=== PATIENT | male | born 1950 | race Caucasian/White ===

== ENCOUNTER → 2023-02-09 09:57 | Outpatient (BNVA) | payer MEDICARE, SELFPAY | PROVIDERS: PCP Internal Medicine; Visit Provider Internal Medicine | DX: R06.02 Shortness of breath (principal); R94.31 Abnormal electrocardiogram [ECG] [EKG]; I10 Essential (primary) hypertension | CPT/HCPCS: 93005; 99202 ==

== ENCOUNTER → 2023-03-11 09:39 | Outpatient (REF) | payer MEDICARE, SELFPAY ==
--- NOTE | ~2023-03-11 | NM_ITS ---
Exercise Myocardial perfusion study Indication: Precordial chest pain Technique: The patient was brought in for an exercise perfusion study on 03/11/2023. Patient performed exercise as per King protocol and was injected 25 mCi of sestamibi was given intravenously one target HR was achieved. Images were obtained using the SPECT gamma camera interlaced with the gating device. Images were obtained in supine position. Resting perfusion study was performed on 03/12/2023. Patient was administered 25 mCi of sestamibi intravenously at rest. Images were then obtained in supine position. Images obtained with and without CT attenuation. Total DLP 90 mGy-cm. Images were processed with the software and compared side to side in short axis, horizontal long axis and vertical long axis views. Findings: The stress perfusion study showed non attenuated images show mildly reduced uptake in the basal inferior wall of the LV myocardium. Remainder of the LV myocardium is normally perfused. Attenuation corrected images show normal uptake of radiotracer in all segments of LV myocardium there is suggestion of left ventricle hypertrophy. The gated study shows reduced LV systolic function with calculated LVEF of 40%, however visually appears to be higher. LV cavity is mildly dilated in size. The gated study shows normal systolic wall thickening and contraction of all segments. There is no transient ischemic dilation. Resting study shows no change in perfusion pattern compared to stress perfusion study. Gating at rest reveals normal systolic wall motion with ejection fraction at 44%. The findings are consistent with no reversible defect suggestive of ischemia. NM/NM cardiolite stress test Impression: 1. Normal myocardial perfusion 2. Gated LVEF is 40% visually appears to be consider echocardiogram 3. Transient ischemic dilatation not present Stress EKG is nondiagnostic for ischemia
--- NOTE | 2023-03-11 09:43 | CA_ITS ---
Acquisition Time: 2023-03-11 10:53:57 Total Exercise Time: 00:04:09 Test Indications: R07.2 - Precordial pain Medications: Protocol: ROSIO Max HR: 133 BPM 89% of Pred: 149 BPM Max BP: 224/088 mmHG Max Work Load: 5.9 METS Exercise stress test exercise 4 min 9 sec of Rosio protocol achieving 89% MPHR, with severe SOB, vague chest discomfort, without arrhythmias, with hypertensive response to exercise, with non-diagnostic EKG due to baseline abnormality. Symptoms resolved in recovery. Max BP 224/88. Nuclear images pending. Test revewied with Dr. Suh. Referred By: Rush Yoo Overread By: JAN MIRZA
== END ==
LOC: HO.CARD 09:39
PROVIDERS: Visit Provider Internal Medicine
DX: R07.2 Precordial pain (principal); I25.10 Atherosclerotic heart disease of native coronary artery without angina pectoris; R94.31 Abnormal electrocardiogram [ECG] [EKG]
CPT/HCPCS: 78452; 93017; A9500

== ENCOUNTER → 2024-04-28 12:22 | Outpatient (REF) | payer MEDICARE, MEDICAID, SELFPAY ==
--- NOTE | 2024-04-28 12:26 | CA_ITS ---
Transthoracic Echocardiogram Patient (Last, First, Middle): Boo Singh, Gender: Male Date of : 1950 Age: 74 Procedure Date: 04/28/2024 Procedure Type: Transthoracic Echocardiogram Location: OP Height: 157.48 cm Weight: 79.38 kg BSA: 1.81 m2 Heart Rate: 70 bpm BP: 148 / 72 mmHg [employer] Crewmember: SB Referring MD: Ramila Fletcher QUALITY SYSTEMS MANAGER Symptoms: R94.39 ABN CV STUDY, HX ABN STRESS, HTN HID ROSA M GLUCOSE Study Quality: Adequate ECG Rhythm: Sinus Conclusions: - Normal left ventricular cavity size. The left ventricular systolic function is mildly decreased. The visually estimated ejection fraction is between 40-45%. - E/E prime ratio is between 8 and 15 consistent with indeterminate filling pressures. - There is severe septal asymmetric hypertrophy. - Normal right ventricular cavity size and systolic function. - The left atrium is mildly dilated. The right atrium is mildly dilated. - Mild pulmonary hypertension is present. - There is mild dilatation of the ascending aorta measuring 3.50 cm. Findings Left Ventricle Normal left ventricular cavity size. The left ventricular systolic function is mildly decreased. The visually estimated ejection fraction is between 40 45%. Abnormal diastolic function is noted. Spectral Doppler is indicative of an impaired relaxation filling pattern. E/E prime ratio is between 8 and 15 consistent with indeterminate filling pressures. There is severe septal asymmetric hypertrophy. Right Ventricle Normal right ventricular cavity size and systolic function. Atria The left atrium is mildly dilated. The right atrium is mildly dilated. Aortic Valve There is a normal trileaflet aortic valve. There is mild calcification of the aortic valve. There is no aortic valve stenosis. There is no aortic valve regurgitation. Mitral Valve The mitral valve appears normal. There is mild mitral valve regurgitation. There is no mitral valve stenosis. Pulmonic Valve The pulmonic valve is normal. There is trace pulmonic valve regurgitation. Tricuspid Valve Normal tricuspid valve structure. There is trace tricuspid valve regurgitation. The right ventricular systolic pressure is 43 mmHg. Normal right atrial pressure. Mild pulmonary hypertension is present. Great Vessels There is mild dilatation of the ascending aorta measuring 3.50 cm. The visualized portions of the pulmonary artery and branches are normal. Venous The inferior vena cava is normal in size and collapses greater than 50% with inspiration. Pericardium/Pleural There is no evidence of pericardial effusion. Prior Study Comparison No prior study available for comparison. Measurements 2D Linear Measurements IVSd: 1.50 0.6-0.9/0.6-1.0 cm LVIDd: 5.50 3.9-5.3/4.2-5.9 cm LVIDd Index: 3.04 2.4-3.2/2.2-3.1 cm/m2 LVIDs: 3.52 2.0-3.6 cm LVPWd: 0.60 0.7-1.1 cm LV Mass: 283.51 67-162/88-224 g LV Mass Index: 156.63 43-95/49-115 g/m2 LVOT Diam: 2.10 3.0+(-)1.3 cm 2D Systolic Function EF 4C: 57.60 >55% EF 2C: 44.90 >55% Mitral Valve MV Pk E: 0.70 MV PK A: 0.52 MV Decel Time: 155.00 E/A: 1.30 E'Lateral: 7.72 E'Medial: 5.66 E/E' Med: 12.30 E/E' Lat: 9.00 PHT: 45.00 MVA PHT: 4.89 Decel Will: 4.51 Aortic Valve AoV Pk Frank: 0.96 AoV Pk Grad: 4.00 BINU: 2.28 LVOT LVOT Pk Frank: 0.63 LVOT Mn Frank: 0.43 LVOT VTI: 0.12 LVOT Pk Grad: 2.00 LVOT Mn Grad: 1.00 LVOT Diam: 2.10 LVOT Area: 3.46 Diastolic Function MV Pk E: 0.70 MV Pk A: 0.52 E/A: 1.30 E'Medial: 5.66 E/E' Med: 12.30 E' Laterial: 7.72 E/E' Lat: 9.00 Right Ventricle TAPSE (mm): 15.70 TVS' Frank: 9.57 Tricuspid Valve TR Pk Frank: 3.15 TR Pk Grad: 40.00 RA Press: 3.00 RVSP: 43.00 Great Vessels Aorta Sinus of Valsalva: 3.30 2.0-3.5 cm Ao Asc: 3.50 2.1-3.4 cm Pulmonary Valve PV Pk Frank: 0.84 Peak PV Grad: 3.00 Updated in Other Vendor System with Status of Final Cameron Hidalgo MD electronically signed on 04/29/2024 11:51:53 AM with status of Final
== END ==
LOC: HO.CARD 12:22
PROVIDERS: PCP Nurse Practitioner Adult Health; Visit Provider Nurse Practitioner Adult Health
DX: R94.39 Abnormal result of other cardiovascular function study (principal)
CPT/HCPCS: 93306

== ENCOUNTER → 2024-04-28 12:26 | Outpatient (BNV) | payer MEDICARE, MEDICAID, SELFPAY | PROVIDERS: PCP Nurse Practitioner Adult Health; Visit Provider Internal Medicine Cardiovascular Disease | DX: I42.2 Other hypertrophic cardiomyopathy (principal); I35.8 Other nonrheumatic aortic valve disorders; I34.0 Nonrheumatic mitral (valve) insufficiency | CPT/HCPCS: 93306 ==

== ENCOUNTER 2024-11-30 09:38 | Outpatient (AMB) | payer MEDICARE, MEDICAID, SELFPAY ==
--- NOTE | 2024-11-30 10:02 | MHC.OFFVIS ---
Vital Signs 11/30/24 10:07 Height 5 ft 2 in Weight 174 lb 2.643 oz BMI 31.9 BP 140/82 H Blood Pressure Location Rt brachial Position Sitting Pulse 76 Pulse Source Monitor Intake Visit Reasons: fu Other Sports Coach Or Instructor Required: Yes Other Sports Coach Or Instructor Language: Software Engineer Mobile Name: [email or web address] [phone] Accompanied by: Son Allergies No Known Allergies Allergy (Verified 02/09/23 10:02) Medication List - Last Reconciled 11/30/24 by Rush Yoo MD amlodipine 10 mg PO DAILY aspirin 81 mg PO DAILY budesonide-formoterol 160-4.5 mcg/actuation (Symbicort) 2 puffs inhalation BID lisinopril 20 mg PO DAILY pravastatin 40 mg PO DAILY tamsulosin 0.4 mg PO DAILY triamcinolone acetonide 0.1% appl topical BID HPI Comments Details: Boo returns for follow-up. He was seen last in 2022. At that time, he had complained about shortness of breath and echocardiogram/stress test were recommended. However, there was no follow-up after that. It seems that he was recently admitted to [facility] with influenza and in that setting also had congestive heart failure. Had diuretics but had LAURA as well. Eventually discharged without diuretics. He states he generally feels okay. Shortness of breath is not too bothersome. Otherwise, on medications for high blood pressure. He does not know the list of meds however. Appears to get them in a pill pack. [facility] Medical History (Updated 11/30/24 @ 12:01 by Rush Yoo MD) Essential hypertension Family History Father Tuberculosis Mother No problems noted. Social History Alcohol intake: never Patient Tobacco Use Status: Former Tobacco user Review of Systems Const Denies chills, Denies fatigue, Denies fever(s), Denies frequent falls, Denies weakness, Denies weight gain and Denies weight loss ENT Denies dizziness Card Denies chest pain, Denies leg edema, Denies lightheadedness, Denies palpitations, Denies dyspnea and Denies dyspnea on exertion Resp Denies cough, Denies dyspnea and Denies dyspnea on exertion GI Denies hematochezia Musc Denies abnormal gait, Denies muscle weakness, Denies numbness, Denies radiating pain into limb and Denies tingling Neuro Denies abnormal gait, Denies dizziness, Denies frequent falls, Denies numbness, Denies tingling and Denies weakness Endo Denies fatigue and Denies palpitations Physical Exam Vital Signs: Last Vital Signs Pulse 76 11/30/24 10:07 BP 140/82 H 11/30/24 10:07 BMI result Body Mass Index 31.9 Const General: comfortable and no acute distress Orientation/consciousness: patient oriented x3 HEENT Other: Unremarkable Head: Yes normal to inspection Neck Neck: Yes normal visual inspection Chest Chest palpation & inspection: normal inspection of the chest Resp Auscultation: crackles Cardio Palpation: normal PMI Heart sounds: S1 normal heart sound present, S2 normal heart sound present, no gallops, no murmurs and no rubs GI Palpation (GI): Soft to palpation Back/Spine/Pelvis Other: unremarkable Skin General skin exam: no rashes or lesions noted Neuro General: patient oriented x3 Extrem General: Yes normal to inspection Psych Mental Status: mental status grossly normal Office Procedures EKG Details: EKG with underlying sinus rhythm at 76/Min; OH prolongation to 226 milliseconds; inferior and lateral downsloping STs that could be related to LVH/strain. [id number], Complete Assessment & Plan Assessment & Plan (1) Heart failure with mildly reduced ejection fraction: Code(s): I50.22 - Chronic systolic (congestive) heart failure Category: Medical (2) Nonischemic cardiomyopathy: Code(s): I42.8 - Other cardiomyopathies Category: Medical (3) Essential hypertension: Code(s): I10 - Essential (primary) hypertension Category: Medical Plan Cardiac studies reviewed. EKG with sinus rhythm and likely LVH/strain pattern. In the echocardiogram, LVEF 40-45%. Severe septal hypertrophy. Mild mitral regurgitation mild pulmonary hypertension. In the stress perfusion imaging study, reached 5.9 METS on King protocol and had shortness of breath, hypertensive blood pressure response. Normal myocardial perfusion. Overall, suspect mild nonischemic cardiomyopathy possibly related to hypertension. He does not have any overt heart failure at this time and not on regular diuretics and that is acceptable. He might need up titration of blood pressure meds but he does not know the names and hence preferably can be done through PCP. Suggestion would be to increase the lisinopril dosing and follow the renal panel. Other option would be to add spironolactone. Follow-up in 6 months time. Coding Level of Care Code Est Pt Level 4 (95715) Diagnoses Heart failure with mildly reduced ejection fraction I50.22 Nonischemic cardiomyopathy I42.8 Essential hypertension I10 CPT Codes EKG - CPT: 07038-[id number], Complete ([id number])
[2024-11-30 10:07] VITALS: BP 140/82; PULSE 76; BMI 31.9
--- OUTSIDE RECORDS SUMMARY | 2024-11-30 10:58 | XMS_ITS | Continuity of Care Document ---
Author Organization [facility], , [facility], OFFICE Address [address] [place] [address] Care Team Providers Care Railroad Repairer Name Role Phone JUAN FLETCHER Primary Care Provider Unavail able Assessment No assessment recorded. Plan of Treatment Reminders Order Date Submit Date Provider Last Modified By Organization Details Last Modified Time Details Appointments Follow Up, 2024 03:00P M Juan mccullough, ROCK ROOM WORKER Not available Not available Not available Lab None recorded. Referral None recorded. Procedures None recorded. Surgeries None recorded. Imaging arterial study, lower extremity , complete - pt speaks solely turkmen, please speak with Ann Perry at to scheduleD ouglas his son will accompany him to any visit 2024 025 [email or web address] [facility], [address] [place] [address], [id number], 11/20/2024 12:00:02 Medication Orders amlodipin e 10 mg tablet 2024 025 [facility], [address] [place] [address], [id number], 11/07/2024 16:41:49 gabapenti n 300 mg capsule 2024 025 [facility], [address] [place] [address], [id number], 11/07/2024 16:41:49 prednison e 20 mg tablet 2024 025 [facility], [address] [place] [address], [id number], 11/07/2024 16:41:48 azithromy christi 250 mg tablet 2024 025 [facility], [address] [place] [address], [id number], 11/22/2024 21:50:45 carbamaze pine 200 mg tablet 2024 025 [facility], [address] [place] [address], [id number], 11/23/2024 16:16:34 tamsulosi n 0.4 mg capsule 2024 025 [facility], [address] [place] [address], [id number], 11/07/2024 16:41:49 Patient TargetsNo targets recorded. Patient Instructions Encounter Date Encounter Id Patient Instructions Last Modified By Organization Details Last Modified Time 11/07/2024 [id number] minutes spent on interview discussion with his son, translating, félixmination , explaining course of tx for all of his presenting issues, documentation . [email or web address] Not available 11/07/2024 17:12:52 Reason for Referral None Reported. Problems Name Problem SNOMED Code Status Onset Date Resolution Date Notes Provider Name and Address Organization Details Recorded Time Ciliary muscle spasm 94248097 Completed 200601/12/2013 Kassy Castillo PA-C [address] [place], [place] [address], [address], [facility] 6 09:43:48 Mixed hyperlipi demia 367226270 Active 2006 Regina Haskins [facility] 6 10:33:47 Impotence of organic origin Active Kassy Castillo PA-C [address] [place] [address] [place], [address], [facility] 6 09:43:48 Rotator cuff shoulder syndrome and allied disorders Completed 01/12/2013 Kassy Castillo PA-C [address] [place], [address], [facility] 6 09:43:48 Contact dermatiti s 46081849 Completed 01/12/2013 ABHISHEK [place], [address], [facility] 6 09:43:48 Lateral epicondyl itis 383230706 Completed 01/12/2013 ABHISHEK [place], [address], [facility] 6 09:43:48 Neck pain 69369353 Completed 01/12/2013 ABHISHEK [place], [address], [facility] 6 09:43:48 Allergic rhinitis 54035319 Completed 200701/12/2013 ABHISHEK [place], [address], [facility] 6 09:43:48 Insomnia 872099870 Completed 04/27/2013 Kassy Castillo PA-C [address] [place] [address] [place], [address], [facility] 6 09:43:48 Atopic dermatiti s 64632793 Completed 200601/12/2013 ABHISHEK [place], [address], [facility] 6 09:43:48 Inguinal hernia 384757350 Completed 06/12/2018 MD [place], [address], [facility] 8 07:19:32 On examinati on - a rash Completed 01/12/2013 ABHISHEK [place], [address], [facility] 6 09:43:48 Seizure 73753570 Completed 200701/12/2013 Kassy Castillo PA-C [address] [place] [address] [place], [address], [facility] 6 09:43:48 Spasm 44616738 Completed 01/12/2013 Kassy Castillo PA-C [address] [place] [address] [place], [address], [facility] 6 09:43:48 Pain in thoracic spine 268494558 Completed 01/12/2013 Kassy Castillo PA-C [address] [place] [address] [place], [address], [facility] 6 09:43:48 Malaise and fatigue 848633282 Completed 200601/12/2013 Kassy Castillo PA-C [address] [place] [address] [place], [address], [facility] 6 09:43:48 Impaired fasting glycemia 995146953 Active Kassy Castillo PA-C [address] [place], [place] [address], [address], [facility] 6 09:43:48 Hypertens leon disorder 54766635 Active Kassy Castillo PA-C [address] [place], [place] [address], [address], [facility] 6 22:19:35 Osteoarth ritis of knee 580706077 Active 2015 Wiley Franco MD [address] [place], [place] [address], [address], [facility] 6 09:25:17 Blepharos pasm 33013300 Active 2017 Susanne Garcia NP [address] [place] [address] [place], [address], [facility] 8 14:20:53 Cardiovas cular stress test abnormal 115872566 Active Olivia Ying MD [address] [place], [place] [address], [address], [facility] 8 07:19:23 Pain of right shoulder joint 494236953064 17921 Active 2019 Wiley Franco MD [address] [place] [address], [place], [place], [address], [facility] 0 11:59:20 Prostatis m 77858956 Active 2019 Wiley Franco MD [address] [place] [address], [place], [address], [facility] 0 12:06:16 Prediabet es 723946413 Active 2023 Juan mccullough, ROCK ROOM WORKER [address] [facility], [place], [address], [facility] 4 09:03:59 Pulmonary hypertens ion 43045997 Active 2023 Juan mccullough, ROCK ROOM WORKER [address] [facility], [place], [address], [facility] 4 13:21:44 Chronic systolic heart failure 246332018 Active 2023 Juan mccullough, ROCK ROOM WORKER [address] [facility], [place], [address], [facility] 4 13:21:57 Chronic obstructi ve pulmonary disease 99234865 Active 2024 Juan mccullough, ROCK ROOM WORKER [address] [facility], [place], [address], [facility] 5 16:48:33 Problem Notes None recorded. Procedures Surgical History Date Name Laterality Status Provider Name and Address Organization Details Recorded Time 11/22/19 25 Post hospital/SNF follow-up/Transiti onal Care completed Karen De Luna MA [facility] 11/22/2024 16:12:00 11/22/19 25 COPD Screening Questions completed Karen De Luna MA [facility] 11/22/2024 16:05:13 10/26/19 25 COPD Screening Questions cancelled Karen De Luna MA [facility] 10/26/2024 08:37:05 04/10/20 24 COPD Screening Questions completed Kendra Salazar, [facility] 04/10/2024 08:57:42 08/24/20 23 COPD Screening Questions completed CADEN Pimentel [facility] 08/24/2023 10:24:11 10/27/19 23 Smoking cessation counseling completed Liya Paz [facility] 10/27/2022 09:18:49 08/04/20 22 Medicare Wellness Visit completed Nhung Moyer [facility] 08/04/2022 08:27:12 08/04/20 22 Alcohol use screening completed Nhung [facility] 08/04/2022 08:27:12 08/04/20 22 Cardiovascular disease risk reduction counseling completed Nhung [facility] 08/04/2022 08:27:12 04/02/20 22 Smoking cessation counseling completed CHRISTA TRIPP PA-C [address] [place] [address], [address], [facility] 04/02/2022 08:48:30 07/17/20 20 Smoking cessation counseling completed Jeanette Hernandez [facility] 07/17/2020 11:48:32 07/17/20 20 Carbon Monoxide Testing completed Jeanette Hernandez [facility] 07/17/2020 11:48:32 09/07/20 19 Smoking cessation counseling completed Liya Paz [facility] 09/07/2019 09:32:45 04/20/20 19 Smoking cessation counseling completed Tiffani Lama LPN [facility] 04/20/2019 10:50:33 04/20/20 19 Carbon Monoxide Testing completed Tiffani Lama STITCHER AROUND [facility] 04/20/2019 10:50:33 10/26/19 19 Shoulder (Right) Injection completed Wiley Franco MD [address] [place], [address], [facility] 10/26/2018 15:40:02 10/21/19 19 Smoking cessation counseling completed Zaina Alvarez D.O. [address] [place] [address], [address], [facility] 10/21/2018 09:10:54 10/21/19 19 POC Urinalysis Testing completed CADEN Pimentel [facility] 10/21/2018 08:42:43 04/24/20 16 Smoking cessation counseling completed Regina Haskisn [facility] 04/24/2016 09:06:20 02/15/20 15 Smoking cessation counseling completed Lisa Amado [facility] 02/14/2015 11:06:45 01/25/20 15 Smoking cessation counseling completed Lisa Amado [facility] 01/24/2015 09:03:18 11/22/19 15 Smoking cessation counseling cancelled Regina Sanchezarez [facility] 11/22/2014 10:26:30 05/10/20 14 Smoking cessation counseling completed Meghan Rdz [facility] 05/10/2014 09:45:21 01/13/20 13 Smoking cessation counseling completed Tasia Yeh [facility] 01/12/2013 14:08:05 06/30/20 12 Anoscopy completed Murray Solis III, MD [address] [place], [address], [facility] 06/30/2012 11:52:33 02/22/20 09 Treatment and Advice completed Mavis Brush PT [address] [place], [address], [facility] 02/21/2009 09:32:26 Imaging Results None recorded. Procedure Notes None recorded. Medical Equipment None Reported. Allergies No known drug allergies Medications Name Sig Start Date Stop Date Status Note LastModified by Organization Details LastModified Time Elocon 0.1 % topical cream APPLY A THIN LAYER TO THE AFFECTED AREA(S) BY TOPICAL ROUTE ONCE DAILY 04/19 completed Not Available Not Available Not Available cyclobenza do 10 mg tablet Take 1 tablet as needed by oral route at bedtime. 2014 active Not Available Not Available Not Avai lable atorvastat in 40 mg tablet Take 1 tablet every day by oral route. 11/07 completed Not Available Not Available Not Available naproxen 375 mg tablet TAKE 1 TABLET BY MOUTH ONCE DAILY IN THE EVENING 03/28 completed Not Available Not Available Not Available azithromyc in 250 mg tablet TAKE 1 TABLET BY MOUTH ONCE DAILY FOR ONE DAY 2024 active Not Available Not Available Not Avai lable pravastati n 40 mg tablet Take 1 tablet every day by oral route in the evening for 30 days. 08/31 completed Not Available Not Available Not Available ofloxacin 0.3 % eye drops INSTILL 1 DROP IN THE RIGHT EYE THREE TIMES DAILY FOR ONE WEEK active Not Available Not Available No t Available bacitracin 500 unit/gram eye ointment APPLY 1 APPLICATI ON IN THE RIGHT EYE EVERY NIGHT DIRECTED active Not Available Not Available No t Available lisinopril 20 mg tablet TAKE 1 TABLET BY MOUTH EVERY DAY active Not Available Not Available No t Available prednisone 20 mg tablet TAKE 2 TABLETS BY MOUTH ONCE DAILY FOR 2 DAYS THEN DECREASE TO 1 TABLET DAILY FOR 2 DAYS active Not Available Not Available No t Available cyanocobal schultz (vit B-12) 1,000 mcg tablet TAKE 1 TABLET BY MOUTH EVERY DAY active Not Available Not Available No t Available aspirin 81 mg tablet,del ayed release TAKE 1 TABLET BY MOUTH EVERY DAY active Not Available Not Available No t Available triamcinol one acetonide 0.1 % topical cream APPLY TO THE AFFECTED AREA(S) SPARINGLY TWICE DAILY 11/22 completed Not Available Not Available Not Available simvastati n 40 mg tablet TAKE ONE TABLET BY MOUTH ONCE DAILY 05/11 completed Not Available Not Available Not Available carbamazep ine 200 mg tablet TAKE 2 TABLETS BY MOUTH EVERY MORNING AND 3 TABLETS BY MOUTH EVERY EVENING 11/22 completed Not Available Not Available Not Available Vibramycin 100 mg capsule 1 PO BID X 10 D 2014 active Not Available Not Available Not Avai lable tamsulosin 0.4 mg capsule TAKE 1 CAPSULE BY MOUTH EVERY DAY active Not Available Not Available No t Available nicotine (polacrile x) 4 mg gum Chew 1 piece of gum every 2 hours by oral route. 08/24 completed NOT USING 8-4-23 Not Available Not Available Not Available Nicoderm CQ 14 mg/24 hr daily transderma l patch Apply 1 patch every day by transderm al route as directed for 30 days. 03/28 completed Pt not using/ /ins does not cover NMT Not Available Not Available Not Available amlodipine 10 mg tablet TAKE 1 TABLET BY MOUTH EVERY DAY active Not Available Not Available No t Available simvastati n 20 mg tablet 1 PO HS 2015 active last PHA 12/2012 , last f/u 05/10, last labs 04/2013 Not Available Not Available Not Available triamcinol one acetonide 0.1 % topical ointment APPLY OINTMENT TOPICALLY THREE TIMES DAILY 11/22 completed Not Available Not Available Not Available lisinopril 10 mg tablet Take 1 tablet every day by oral route. 04/19 completed Not Available Not Available Not Available nicotine 21 mg/24 hr daily transderma l patch Apply 1 patch every day by transderm al route for 30 days. 12/24 completed Not Available Not Available Not Available gabapentin 300 mg capsule TAKE 1 CAPSULE BY MOUTH EVERY DAY AT BEDTIME active Not Available Not Available No t Available diclofenac sodium 75 mg tablet,del ayed release TAKE 1 TABLET BY MOUTH TWICE DAILY WITH MEALS FOR 10 DAYS 05/04 completed done Not Available Not Available Not Available mirtazapin e 15 mg tablet TAKE 1 TABLET BY MOUTH ONCE DAILY AT BEDTIME 03/28 completed Not Available Not Available Not Available Viagra 100 mg tablet Take 1 tablet every day by oral route. 2008 active Not Available Not Available Not Avai lable ibuprofen 600 mg tablet TAKE 1 TABLET BY MOUTH THREE TIMES DAILY FOR 10 DAYS 04/20 completed Not Available Not Available Not Available Anusol-HC 25 mg rectal suppositor y Insert 1 supposito ry twice a day by rectal route for 14 days. 2011 active Not Available Not Available Not Avai lable albuterol sulfate HFA 90 mcg/actuat ion aerosol inhaler INHALE 2 PUFFS BY MOUTH EVERY 4 HOURS NEEDED FOR WHEEZING OR SHORTNESS OF BREATH active Not Available Not Available No t Available betamethas one dipropiona te 0.05 % topical ointment Apply a thin film to the affected skin areas by topical route once daily 2010 active Not Available Not Available Not Avai lable Ambien 10 mg tablet Take 1 tablet as needed by oral route at bedtime. 2009 active Not Available Not Available Not Avai lable naproxen 500 mg tablet Take 1 tablet twice a day by oral route as directed. 04/20 completed Not Available Not Available Not Available Benadryl 25 mg capsule Take 1-2 capsules qhs prn 04/19 completed Not Available Not Available Not Available Flexeril 5 mg tablet Take 1 tablet 3 times a day by oral route. 2009 active Not Available Not Available Not Avai lable Epitol 06/24 completed Not Available Not Available Not Available Symbicort 160 mcg-4.5 mcg/actuat ion HFA aerosol inhaler INHALE 2 PUFF BY MOUTH TWICE DAILY. RINSE MOUTH AFTER USING. 06/24 completed Not Available Not Available Not Available diclofenac 1 % topical gel APPLY 2 GRAMS TO THE AFFECTED AREA(S) BY TOPICAL ROUTE 4 TIMES PER DAY active Not Available Not Available No t Available Anoro Ellipta 62.5 mcg-25 mcg/actuat ion powder for inhalation INHALE 1 PUFF BY MOUTH EVERY DAY AT THE SAME TIME RINSE MOUTH AFTER USING active Not Available Not Available No t Available Flonase Allergy Relief 50 mcg/actuat ion nasal spray,susp ension Inhale 2 sprays every day by intranasa l route. 04/19 completed Not Available Not Available Not Available Vitals Date Recorded Body height Body mass index (BMI) Body weight Oxygen saturation Oxygen saturation in Arterial blood by Pulse oximetry Heart rate Systolic blood pressure Diastolic blood pressure Provider Name and Address Organization Details Last Updated DateTime 5 157.48 cm 32.1 kg/m2 64320.7 6 g 99 % 99 % 75 /min 136 mm[Hg] 78 mm[Hg] Liya Paz CMA [facility] 5 15:51:49 Social History Question Answer Notes LastModified by Organizat ion Details LastModified Time Tobacco Smoking Status Former Smoker 3 or 4 cigs a day, 04/10/24AR 11/22/24 Karen De Luna MA [facility] 11/22/2024 16:19:32 Do You Have An Advance Directive? No [email or web address] Information not available 08/13/2011 What Is Your Level Of Alcohol Consumption? None Information not available 01/12/2013 What Is Your Level Of Caffeine Consumption? Occasional 1 Cup A Day 04/03/24AR 04/10/24AR [email or web address] Information not available 04/10/2024 How Much Tobacco Do You Chew? None Information not available 02/14/2015 What Type Of Diet Are You Following? REGULAR Information not available 04/20/2019 Do You Or Have You Ever Used E-cigarettes Or Vape? Never Used Electronic Cigarettes Information not available 07/17/2020 What Is Your Occupation? [employer] Information not available 04/20/2019 Have There Been Any Changes To Your Family Or Social Situation? No Information not available 08/04/2022 How Many Days In The Past Year Have You Had A Heavy Drinking Consumption (4+ Female, 5+ Male)? 0 Information not available 01/12/2013 Are There Any Guns Present In Your Home? No Information not available 08/04/2022 Do You Use Insect Repellent Routinely? No Information not available 08/04/2022 Patient Has Health Care Proxy Signed And In Chart No Information Given 2013 Information not available 2013 CCM Consent Discussion 10/21/2018 [email or web address] Information not available 10/21/2018 Marital Status Informatio n not available 04/20/2019 What Was The Date Of Your Most Recent Tobacco Screening? 11/22/2024 [email or web address] Information not available 11/22/2024 How Many Children Do You Have? 2 Information not available 04/20/2019 What Is Your Current Pack Years? [email or web address] Information not available 02/14/2015 Do You Use Your Seat Belt Or Car Seat Routinely? Yes Information not available 08/04/2022 Do You Have Smoke And Carbon Monoxide Detectors In Your Home? No Information not available 08/04/2022 Are You Passively Exposed To Smoke? No Information not available 08/04/2022 Do You Or Have You Ever Used Smokeless Tobacco? Never Used Smokeless Tobacco Information not available 07/17/2020 How Much Tobacco Do You Smoke? 0.25 PPD [email or web address] Information not available 07/17/2020 Do You Use Any Illicit Or Recreational Drugs? No 04/10/24AR [email or web address] Information not available 04/10/2024 Do You Use Sunscreen Routinely? No Information not available 08/04/2022 How Many Years Have You Smoked Tobacco? 50 [email or web address] Information not available 07/17/2020 Do You Or Have You Ever Used Any Other Forms Of Tobacco Or Nicotine? No [email or web address] Information not available 04/03/2024 Sex: Male Functional Status Question Answer Note LastModified by Organization D etails LastModified Time What is your exercise level? None Information not available 08/04/2022 Mental Status None recorded. Family History Nothing Reported. Medical History Condition Response Hypertension Y Immunizations Vaccine Type Date Status Note Provider Nam e and Address Organization Details Recorded Time Influenza, split virus, trivalent, preservative 1 completed Not Available [facility] 10/14/2019 02:27:38 pneumococcal polysaccharide PPV23 1 completed Not Available [facility] 10/14/2019 02:14:32 Tdap 7 completed Not Available [facility] 08/12/2011 05:21:55 Influenza, split virus, quadrivalent, PF 5 completed Not Available [facility] 10/14/2019 02:20:10 zoster live 6 completed Not Available [facility] 10/14/2019 02:20:18 Pneumococcal conjugate PCV 13 8 completed Not Available [facility] 10/14/2019 02:34:17 Td (adult), 2 Lf tetanus toxoid, preservative free, adsorbed 8 completed Not Available [facility] 10/14/2019 02:22:37 Influenza, high-dose, quadrivalent, PF 2 completed Juan Fletcher NP [address] [place] [address], [address], [facility] 08/04/2022 15:35:15 Influenza, high-dose, trivalent, PF 5 completed Juan Fletcher NP [address] [place], [address], [facility] 11/22/2024 17:43:21 Past Encounters Encounter ID Performer Location Encounter Start Date Encounter Closed Date Diagnosis/Indication Diagnosis SNOMED-CT Code Diagnosis ICD10 Code Diagnosis Note [id number] Taras Barrios MD , [facility], OFFICE [address] [place], [place] [address] 11/07/2024 15:11:45 11/08/2024 11:17:18 Blepharospasm 97583769 G24.5 cbz renewed Prostatism 46898476 N40. 0 c.o slowed stream, hesitancyb egin flomax 09/2022rene wed 10/2024 Hypertensive disorder 38 940362 I10 04/30/2023 bp not at goalit would not be appropriat e to make a change as he is leaving for [address] [facility];vador tomorrowf/ u with PCP 136/78. Here with jose alfredo an out of med(he takes no interest in dosing, dispenses) renew amlodipine , follow BP Cough 37168518 R05.9 gets winded with walking room to roomson reports that wheezing is audible at times, with productive coughdenie s fever poor air movement with I and E wheezeNAD at rest, 99% sat rr=12high eos last lab while he has only Hx of non respiratir y atopylets treat as an asthmatic, cover with Abx as well Allergic eosinophilia 64 369650 D72.10 Paresthesi a of lower extremity 976250289 R20.2 c.o classic pins and needles of feet symmetrica lly at nightlikel y associated with new onset diabetestr ial gabapentin 300HS Interventr icular cardiac septal hypertrophy 805885981 I51.89 04/2024syst olic EF 40-45% severe septal asymmetric hypertroph y mild dilation of L and R atria mild pulm htn mild dilation of ascending aorta 3.5 cmdenies orthostasi s Intermitte nt claudication 96963448 I73.9 may be neurogenic claudicati on of spinal stenosis without significan t low back painbut differenti ation is toughAltho ugh aspects of the presentati on are not typical lets exclude Peripheral vasc disease with [facility] sp[facility]ldsp[facility] l stenosis eval tabled for now he reports symmetric leg tightness/ numbness/f ullness /cramping of entireties of both legs after walking even short distances room to room in the house.Unab le to walk diatances fr the same reason, yet was able to walk from parking lot to office symptom free just now.He goes shopping occasional ly. never tried leaning over the cart.state s h never just stands still to see if the pain resolves, rather has always chosen to sit down, waitinf 20-25 minutes for the pains to subside. No difference up or downhillHe has Dp pulses, good cap refill, no lesions Peripheral neuropathy due to type 2 diabetes mellitus 7303309517 107 E11.42 while A1c not quite criteria (at 6.3) d his FBG >150 was after a sugary coffeethis is lilely Dx he has vibratory dulling to barely perceptabl e at MTP and IP of [place] loss monofilame nt sensation lateral forefootNo skin lesions on feet Health Concerns Section Related Observation LastModified by Organization Elo ls LastModified Time None Recorded Concern Status LastModified by Organization Details LastModified Time None Recorded Payers Encounter Date Sequence Insurance Name Policy Number Policy Lu Covered Member ID Lu Member ID Guarantor Name 11/07/2024 1 MEDICARE [place]: [employer] Boo Quezada [id number] Boo morales
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
== END 2024-11-30 10:26 | disposition home or self-care (01) ==
PROVIDERS: PCP Nurse Practitioner Adult Health; Visit Provider Internal Medicine
DX: I50.22 Chronic systolic (congestive) heart failure (principal); I42.8 Other cardiomyopathies; I10 Essential (primary) hypertension
CPT/HCPCS: 93010; 99214

== ENCOUNTER → 2024-11-30 09:38 | Outpatient (BNVA) | payer MEDICARE, SELFPAY | PROVIDERS: PCP Nurse Practitioner Adult Health; Visit Provider Internal Medicine | DX: I11.0 Hypertensive heart disease with heart failure (principal); I50.22 Chronic systolic (congestive) heart failure; I42.8 Other cardiomyopathies | CPT/HCPCS: 93005; 99212 ==

== ENCOUNTER 2025-06-21 09:09 | Outpatient (AMB) | payer MEDICARE, SELFPAY ==
[2025-06-21 10:03] VITALS: BP 128/68; PULSE 64; BMI 31.9
--- NOTE | 2025-06-21 10:03 | MHC.OFFVIS ---
Vital Signs 06/21/25 10:03 Height 5 ft 2 in Weight 174 lb 2.643 oz BMI 31.9 BP 128/68 Blood Pressure Location Lt brachial Position Sitting Pulse 64 Pulse Source Pulse Oximeter Intake Visit Reasons: 6m follow up echo prior Fitness Services Manager Required: Yes Fitness Services Manager Name: KONSTANTIN [phone] Allergies No Known Allergies Allergy (Verified 02/09/23 10:02) Medication List - Last Reconciled 06/21/25 by Rush Yoo MD amlodipine 10 mg PO DAILY aspirin 81 mg PO DAILY budesonide-formoterol 160-4.5 mcg/actuation (Symbicort) 2 puffs inhalation BID lisinopril 20 mg PO DAILY pravastatin 40 mg PO DAILY tamsulosin 0.4 mg PO DAILY triamcinolone acetonide 0.1% appl topical BID HPI Comments Details: Boo returns for follow-up. Originally, seen in 2022. At that time, he had complained about shortness of breath and echocardiogram/stress test were recommended. However, there was no follow-up after that. Then he was admitted to [facility] with influenza and in that setting also had congestive heart failure. Had diuretics but had LAURA as well. Eventually discharged without diuretics. Since last seen, he states he generally feels okay. No new concerns. Breathing is at baseline. No angina. He does not know his medications. Last smoked about 6 months ago. [facility] Medical History (Updated 11/30/24 @ 12:01 by Rush Yoo MD) Essential hypertension Family History Father Tuberculosis Mother No problems noted. Social History Alcohol intake: never Patient Tobacco Use Status: Former Tobacco user Review of Systems Const Reports fatigue and Denies weakness ENT Reports dizziness Card Denies chest pain, Denies chest pain with activity, Denies syncope, Denies rapid heart rate, Denies pedal edema, Denies edema, Denies leg edema, Denies lightheadedness, Denies palpitations, Reports dyspnea, Denies dyspnea on exertion and Denies orthopnea Resp Denies cough, Reports dyspnea and Denies dyspnea on exertion GI Denies hematochezia and Denies change in stool character Musc Denies abnormal gait, Denies muscle cramps, Denies muscle weakness, Denies numbness, Denies radiating pain into limb and Denies tingling Neuro Denies abnormal gait, Reports dizziness, Denies syncope, Denies numbness, Denies tingling and Denies weakness Endo Reports fatigue and Denies palpitations Physical Exam Vital Signs: Last Vital Signs Pulse 64 06/21/25 10:03 BP 128/68 06/21/25 10:03 BMI result Body Mass Index 31.9 Const General: comfortable and no acute distress Orientation/consciousness: patient oriented x3 HEENT Other: Unremarkable Head: Yes normal to inspection Neck Neck: Yes normal visual inspection Chest Chest palpation & inspection: normal inspection of the chest Resp Auscultation: rhonchi and diminished lung sounds Cardio Palpation: normal PMI Heart sounds: S1 normal heart sound present, S2 normal heart sound present, no gallops, no murmurs and no rubs GI Palpation (GI): Soft to palpation Back/Spine/Pelvis Other: unremarkable Skin General skin exam: no rashes or lesions noted Neuro General: patient oriented x3 Extrem General: Yes normal to inspection Psych Mental Status: mental status grossly normal Assessment & Plan Assessment & Plan (1) Heart failure with mildly reduced ejection fraction: Code(s): I50.22 - Chronic systolic (congestive) heart failure Category: Medical (2) Nonischemic cardiomyopathy: Code(s): I42.8 - Other cardiomyopathies Category: Medical (3) Essential hypertension: Code(s): I10 - Essential (primary) hypertension Category: Medical Plan Cardiac studies reviewed. EKG with sinus rhythm and likely LVH/strain pattern. In the echocardiogram, LVEF 40-45%. Severe septal hypertrophy. Mild mitral regurgitation mild pulmonary hypertension. In the stress perfusion imaging study, reached 5.9 METS on King protocol and had shortness of breath, hypertensive blood pressure response. Normal myocardial perfusion. Overall, suspect mild nonischemic cardiomyopathy possibly related to hypertension. Diuretics are not listed in his med list and he does not know the names of meds either. Additional meds that could be considered or Jardiance +/-spironolactone. However, due to lack of insight med changes should go through PCP to avoid confusion. We will check a repeat echocardiogram. Also check BNP/BMP. Discussion Notes I discussed with the patient the need for an echocardiogram and blood work to evaluate his cardiovascular health and address the reported leg swelling. We agreed on a follow-up appointment in three months to review the results and adjust the care plan as necessary. Patient was informed and verbally consented to the use of an ambient scribe for clinic note documentation during this visit. Orders: Orders CA echo transthoracic complete Today I50.22 - Chronic systolic (congestive) heart failure NT Pro B Type Natriuretic Pept Today I50.9 - Heart failure, unspecified Basic Metabolic Panel Today I50.9 - Heart failure, unspecified Patient Instructions: - Schedule and complete the echocardiogram and blood work. - Monitor for any new or worsening symptoms, such as increased swelling or difficulty breathing, and report them promptly. - Follow up in three months for a review of test results and further evaluation. Coding Level of Care Code Est Pt Level 4 (94061) Complex EM visit Add On G2211 Diagnoses Heart failure with mildly reduced ejection fraction I50.22 Nonischemic cardiomyopathy I42.8 Essential hypertension I10
== END 2025-06-21 10:32 | disposition home or self-care (01) ==
LOC: HO.HCS 09:10
PROVIDERS: PCP Nurse Practitioner Adult Health; Visit Provider Internal Medicine
DX: I50.22 Chronic systolic (congestive) heart failure (principal); I42.8 Other cardiomyopathies; I10 Essential (primary) hypertension
CPT/HCPCS: 99214; G2211

== ENCOUNTER → 2025-06-21 09:09 | Outpatient (BNVA) | payer MEDICARE, SELFPAY | PROVIDERS: PCP Nurse Practitioner Adult Health; Visit Provider Internal Medicine | DX: I11.0 Hypertensive heart disease with heart failure (principal); I50.22 Chronic systolic (congestive) heart failure; I42.8 Other cardiomyopathies; Z79.82 Long term (current) use of aspirin; Z87.891 Personal history of nicotine dependence | CPT/HCPCS: 99212 ==